=== PATIENT | male | born 1970 | race African-American/Black ===

== ENCOUNTER 2019-01-25 17:40 | Emergency (ER) | payer MEDICAID, OTHER ==
[~2019-01-25] VITALS: Ht 175.3 cm; Wt 88.0 kg
[~2019-01-25 17:40] MED LIST: CHOL50006 PO; LISI10TA5 PO; SIMV20TA6 PO; TRAM50TA94 PO; [UNRECOGNIZED DRUG - CODE] PO
[2019-01-25] MEDS ORDERED: TETANUS, DIPHTHERIA, PERTUSSIS VAC/PF 0.5ML (>7YR OLD) IM ONE (20:00)
[2019-01-25 20:20] VITALS: BP 126/72
== END 2019-01-25 20:21 | disposition home or self-care (01) ==
LOC: ER 17:40
DX: Z23 Encounter for immunization (principal); S68.126 Partial traumatic metacarpophalangeal amputation of right little finger; Y04.1XXD Assault by human bite, subsequent encounter; Y93.89 Activity, other specified; Y92.89 Other specified places as the place of occurrence of the external cause
CPT/HCPCS: 90471; 90715; 99283

== ENCOUNTER 2020-12-23 00:18 | Emergency (ER) | payer MEDICAID ==
[~2020-12-23] VITALS: Ht 172.7 cm; Wt 87.0 kg
[~2020-12-23 00:18] MED LIST changes: +LISI10TA26 PO; -LISI10TA5 PO; +SIMV-43 PO; -SIMV20TA6 PO
[2020-12-23 00:20] VITALS: BP 136/84
[2020-12-23] MEDS ORDERED: BACITRACIN ZINC OINT UDPKT TOP ONE (01:00)
[2020-12-23] MEDS ORDERED: ACETAMINOPHEN 325MG TABLET PO ONE (01:15)
[2020-12-23] MEDS ORDERED: LIDOCAINE HCL 1% 20ML VIAL (Pyxis) INJ INFIL ONE (02:15)
[2020-12-23] MEDS ORDERED: TOPUD MT (03:26)
== END 2020-12-23 03:44 | disposition home or self-care (01) ==
LOC: ER 00:18
DX: S61.011A Laceration without foreign body of right thumb without damage to nail, initial encounter (principal); I10 Essential (primary) hypertension; Z88.6 Allergy status to analgesic agent; Y04.0XXA Assault by unarmed brawl or fight, initial encounter; Y93.89 Activity, other specified; Y92.89 Other specified places as the place of occurrence of the external cause; Y99.8 Other external cause status
CPT/HCPCS: 12001; 73130; 99283; J3490